=== PATIENT | male | born 1945 | race Caucasian/White ===

== ENCOUNTER 2017-01-05 14:28 | Inpatient (IN) | payer OTHER ==
[2017-01-05 14:46] VITALS: BMI 33.8
--- NOTE | 2017-01-05 14:53 | PDOC ---
History of Present Illness <Jocelyn Welch - Last Filed: 01/05/17 17:15> - History of Present Illness Initial Comments: 01/05/17 14:54 71-year-old male with a past medical history of hyperlipidemia and hypertension Patient's only blood thinner at this time is a baby aspirin daily Patient is complaining of a few months of occasionally feeling itchy all over, but without hives or any other ALLERGIC reaction symptoms He also states that he's had a few months of gradually progressive weakness associated with some increasing dyspnea on exertion, but he denies any chest pain palpitations or pedal edema He states he's had a bit of a cough for a long time, but that has been attributed to his ALLERGIES He does admit that his stool is been intermittently dark for 3-4 months, and his urine has possibly been dark also He states that his last colonoscopy was over 10 years ago He denies any associated abdominal pain or chest pain He went to see an automatic coin machine mechanic yesterday for his seasonal ALLERGIES and his occasional skin itching, and had some blood work done He was called today to come to the emergency department because he was told that his "blood counts were low" He denies any other complaints at this time, and the remainder of the review of systems is negative <Renetta Contreras - Last Filed: 01/05/17 17:24> - General Chief Complaint: Revisit, Lab Variance Stated Complaint: sent by pmd for labs skin color pale Time Seen by Provider: 01/05/17 14:32 Past History <Jocelyn Welch - Last Filed: 01/05/17 17:15> - Past Medical History Disorders: Yes (kidney stones) Hypercholesterolemia: Yes - Psycho/Social/Smoking Cessation Hx Anxiety: No Suicidal Ideation: No Smoking History: Never smoked Have you smoked in the past 12 months: No Information on smoking cessation initiated: No Hx Alcohol Use: No Drug/Substance Use Hx: No Substance Use Type: Alcohol <Renetta Contreras - Last Filed: 01/05/17 17:24> - Past Medical History Allergies/Adverse Reactions: Allergies Allergy/AdvReac Type Severity Reaction Status Date / Time No Known Allergies Allergy Unverified 01/05/17 14:32 Home Medications: Ambulatory Orders Aspirin [Evan Chewable] 81 mg PO DAILY 01/05/17 Cetirizine HCl 10 mg PO DAILY 01/05/17 Guaifenesin Dm [Mucinex Dm -] 2 each PO BID 01/05/17 Montelukast Na [Singulair -] 10 mg PO HS 01/05/17 Pravastatin Sodium [Pravachol (Nf)] 80 mg PO HS 01/05/17 Review of Systems - Review of Systems Able to Perform ROS?: Yes Comments:: 01/05/17 14:56 12 point review of systems is as per history of present illness and otherwise negative <Renetta Contreras - Last Filed: 01/05/17 17:24> *Physical Exam - Vital Signs Last Vital Signs Temp Pulse Resp BP Pulse Ox 99 F 80 16 138/70 100 01/05/17 14:39 01/05/17 14:39 01/05/17 14:39 01/05/17 14:39 01/05/17 15:13 <Jocelyn Welch - Last Filed: 01/05/17 17:15> - Vital Signs Last Vital Signs Temp Pulse Resp BP Pulse Ox 99 F 80 16 138/70 100 01/05/17 14:39 01/05/17 14:39 01/05/17 14:39 01/05/17 14:39 01/05/17 14:39 - Physical Exam Comments: 01/05/17 14:56 Physical exam Last Vital Signs Temp Pulse Resp BP Pulse Ox 99 F 80 16 138/70 100 01/05/17 14:39 01/05/17 14:39 01/05/17 14:39 01/05/17 14:39 01/05/17 14:39 GENERAL: The patient is awake, alert, and answering questions He appears pale HEAD: Normal with no signs of trauma. EYES: Conjunctiva and sclera are pale ENT: Lips and mucous membranes are pale NECK: Normal range of motion, supple LUNGS: Breath sounds equal, clear to auscultation bilaterally. No wheezes, and no crackles. HEART: Regular rate and rhythm, normal S1 and S2 without murmur, rub or gallop. ABDOMEN: Soft, nontender, normoactive bowel sounds. No guarding, no rebound. No masses appreciated. RECTAL: Stool is brown, without obvious black tarry stool, or bright red blood EXTREMITIES: Normal range of motion, no edema. No clubbing or cyanosis. No cords, erythema, or tenderness. NEUROLOGICAL: Cranial nerves II through XII grossly intact. Normal speech, normal gait. Alert and answering questions, grossly nonfocal neurologic exam PSYCH: Normal mood, normal affect. SKIN: Warm, Dry, pale <Renetta Contreras - Last Filed: 01/05/17 17:24> ED Treatment Course - LABORATORY CBC & Chemistry Diagram: 01/05/17 14:35 01/05/17 14:36 - ADDITIONAL ORDERS Additional order review: Laboratory Results 01/05/17 01/05/17 01/05/17 15:15 15:10 14:36 Sodium Potassium Chloride Carbon Dioxide Anion Gap BUN Creatinine Creat Clearance w eGFR Random Glucose Calcium Magnesium Total Bilirubin AST ALT Alkaline Phosphatase Creatine Kinase Troponin I Total Protein Albumin Lipase Urine Color Yellow Urine Appearance Clear Urine pH 5.0 Ur Specific [place] 1.020 Urine Protein Negative Urine Glucose (UA) Negative Urine Ketones Trace Urine Blood Negative Urine Nitrite Negative Urine Bilirubin Negative Urine Urobilinogen 0.2 e.u/dl Ur Leukocyte Esterase Negative Stool Occult Blood Negative Crossmatch See Detail 01/05/17 01/05/17 14:36 14:36 Sodium 136 Potassium 4.2 Chloride 105 Carbon Dioxide 22 Anion Gap 9 BUN 18 Creatinine 0.7 Creat Clearance w eGFR > 60 Random Glucose 124 H Calcium 8.5 Magnesium 2.1 Total Bilirubin 0.6 AST 17 ALT 17 Alkaline Phosphatase 75 Creatine Kinase 80 Troponin I < 0.03 L Total Protein 7.0 Albumin 3.8 Lipase 34 Urine Color Urine Appearance Urine pH Ur Specific [place] Urine Protein Urine Glucose (UA) Urine Ketones Urine Blood Urine Nitrite Urine Bilirubin Urine Urobilinogen Ur Leukocyte Esterase Stool Occult Blood Crossmatch 01/05/17 14:35 RBC 3.95 L MCV 54.1 L MCHC 27.9 L RDW 21.3 H MPV 7.6 <Jocelyn Weclh - Last Filed: 01/05/17 17:15> - LABORATORY CBC & Chemistry Diagram: 01/05/17 14:35 01/05/17 14:36 - RADIOLOGY Radiology Studies Ordered: Category Date Time Status CHEST X-RAY PORTABLE* [RAD] Stat Radiology 01/05/17 14:33 Ordered <Renetta Contreras - Last Filed: 01/05/17 17:24> Medical Decision Making - Medical Decision Making 01/05/17 17:15 First call placed to Dr. Austin at 17:15. Awaiting call back. Case discussed with Dr. Austin at 17:16. 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 for his itchy spells and his cough associated with seasonal ALLERGIES, and was called today, and told to come to the emergency department because his "blood counts were low" 01/05/17 15:03 EKG Normal sinus rhythm 81, left axis deviation -16 First degree AV block Normal QRS duration Normal QT interval Otherwise normal EKG There is no old EKG for comparison at this time 01/05/17 17:00 Laboratory Results - last 24 hr 01/05/17 01/05/17 01/05/17 14:35 14:36 14:36 WBC 9.3 RBC 3.95 L Hgb 6.0 L* Hct 21.4 L MCV 54.1 L MCHC 27.9 L RDW 21.3 H Plt Count 263 MPV 7.6 Sodium 136 Potassium 4.2 Chloride 105 Carbon Dioxide 22 Anion Gap 9 BUN 18 Creatinine 0.7 Creat Clearance w eGFR > 60 Random Glucose 124 H Calcium 8.5 Magnesium 2.1 Total Bilirubin 0.6 AST 17 ALT 17 Alkaline Phosphatase 75 Creatine Kinase 80 Troponin I < 0.03 L Total Protein 7.0 Albumin 3.8 Lipase 34 Urine Color Urine Appearance Urine pH Ur Specific [place] Urine Protein Urine Glucose (UA) Urine Ketones Urine Blood Urine Nitrite Urine Bilirubin Urine Urobilinogen Ur Leukocyte Esterase Stool Occult Blood Crossmatch 01/05/17 01/05/17 01/05/17 14:36 15:10 15:15 WBC RBC Hgb Hct MCV MCHC RDW Plt Count MPV Sodium Potassium Chloride Carbon Dioxide Anion Gap BUN Creatinine Creat Clearance w eGFR Random Glucose Calcium Magnesium Total Bilirubin AST ALT Alkaline Phosphatase Creatine Kinase Troponin I Total Protein Albumin Lipase Urine Color Yellow Urine Appearance Clear Urine pH 5.0 Ur Specific [place] 1.020 Urine Protein Negative Urine Glucose (UA) Negative Urine Ketones Trace Urine Blood Negative Urine Nitrite Negative Urine Bilirubin Negative Urine Urobilinogen 0.2 e.u/dl Ur Leukocyte Esterase Negative Stool Occult Blood Negative Crossmatch See Detail Hemoglobin 6 !!! With extremely microcytic indices Possibly thalassemia trait, with secondary blood loss and iron deficiency anemia on top of that Will check iron, TIBC, ferritin, reticulocyte count, hemoglobin electrophoresis 3 units PRBCs ordered Hospitalist paged 01/05/17 17:[address] [id number] see patient in consultation Case and all results discussed with Dr. Israel-will admit <Renetta Contreras - Last Filed: 01/05/17 17:24> *DC/Admit/Observation/Transfer <Jocelyn Welch - Last Filed: 01/05/17 17:15> - Discharge Dispostion Admit: Yes <Renetta Contreras - Last Filed: 01/05/17 17:24> Diagnosis at time of Disposition: Severe anemia - Discharge Dispostion Condition at time of disposition: Stable
[2017-01-05 15:41] LABS: MCHC 27.9 g/dl (32.0-35.9); MEAN CELL VOLUME 54.1 fl (80-96); MEAN PLT VOLUME 7.6 fl (7.5-11.1); PLATELET COUNT 263 K/MM3 (134-434); RDW 21.3 % (11.9-15.9); WHITE BLOOD COUNT 9.3 K/mm3 (4.0-10.8)
[2017-01-05 15:51] LABS: URINE APPEARANCE Clear; URINE BILIRUBIN Negative (NEGATIVE); URINE BLOOD Negative (NEGATIVE); URINE GLUCOSE (UA) Negative (NEGATIVE); URINE KETONE Trace (NEGATIVE); URINE LEUK ESTERASE Negative (NEGATIVE); URINE NITRITE Negative (NEGATIVE); URINE PROTEIN Negative (NEGATIVE); URINE UROBILINOGEN 0.2 E.U/dl (0.2-1.0)
[2017-01-05 15:52] LABS: URINE COLOR YELLOW
[2017-01-05 16:23] LABS: TROPONIN I (DFP) < 0.03 ng/ml (0.03-0.50)
[2017-01-05 16:32] LABS: ALBUMIN 3.8 g/dl (3.5-5.0); ALK PHOS 75 U/L (32-92); ANION GAP 9 (8-16); BILIRUBIN,TOTAL 0.6 mg/dl (0.2-1.0); CALCIUM 8.5 mg/dl (8.4-10.2); CO2 22 mmol/L (22-28); COCKROFT - GAULT 136.07; CREATININE 0.7 mg/dl (0.6-1.3); GLUCOSE,RANDOM 124 mg/dl (74-106); MAGNESIUM 2.1 mg/dL (1.8-2.4); SGOT/AST 17 U/L (10-42); SGPT/ALT 17 U/L (10-40)
[2017-01-05 16:33] LABS: CPK(DFH) 80 IU/L (38-174)
[2017-01-05 16:50] LABS: MCH 15.1 pg (25.7-33.7)
[2017-01-05] MEDS ORDERED: PANTOPRAZOLE SODIUM 40 MG in SODIUM CHLORIDE 100 ML IVPB ONE (17:00)
[2017-01-05] MEDS ORDERED: PANTOPRAZOLE SODIUM 40 MG VIAL ONE (17:16)
--- NOTE | 2017-01-05 20:17 | HP ---
CHIEF COMPLAINT: Sob, Weakness PCP: HISTORY OF PRESENT ILLNESS: This is a 71 y/o male with a past medical of HTN, HLD, Renal Colic. Who presents to the emergency department with SOB, generalized weakness x several months worse today. Patient reports having dark tarry stools 3-4 months. Patient reports taking Pepto Bismol 2 weeks ago for dyspepsia. Patient reports last colonoscopy > 10 yrs. Patient denies fever, chills, cough, dizziness, CP, AP, N/V/D, constipation, hematuria. ER course was notable for: (1) Hgb 6.0 (2) EKG- NSR [address] or TWI (3) Recent Travel: None PAST MEDICAL HISTORY: See HPI PAST SURGICAL HISTORY: Social History: Smoking: Former 1.5PPD- Quit 30 yrs Alcohol: Occasional Drugs: None Family History: Colorectal Ca Allergies No Known Allergies Allergy (Unverified 01/05/17 14:32) HOME MEDICATIONS: Home Medications Medication Instructions Recorded Aspirin [Evan Chewable] 81 mg PO DAILY 01/05/17 Cetirizine HCl 10 mg PO DAILY 01/05/17 Guaifenesin Dm [Mucinex Dm -] 2 each PO BID 01/05/17 Montelukast Na [Singulair -] 10 mg PO HS 01/05/17 Pravastatin Sodium [Pravachol (Nf)] 80 mg PO HS 01/05/17 REVIEW OF SYSTEMS CONSTITUTIONAL: generalized weakness Absent: fever, chills, diaphoresis, malaise, loss of appetite, weight change HEENT: Absent: rhinorrhea, nasal congestion, throat pain, throat swelling, difficulty swallowing, mouth swelling, ear pain, eye pain, visual changes CARDIOVASCULAR: Absent: chest pain, syncope, palpitations, irregular heart rate, lightheadedness , peripheral edema RESPIRATORY: shortness of breath Absent: cough, dyspnea with exertion, orthopnea, wheezing, stridor, hemoptysis GASTROINTESTINAL: melena Absent: abdominal pain, abdominal distension, nausea, vomiting, diarrhea, constipation, hematochezia GENITOURINARY: Absent: dysuria, frequency, urgency, hesitancy, hematuria, flank pain, genital pain MUSCULOSKELETAL: Absent: myalgia, arthralgia, joint swelling, back pain, neck pain SKIN: Absent: rash, itching, pallor HEMATOLOGIC/IMMUNOLOGIC: Absent: easy bleeding, easy bruising, lymphadenopathy, frequent infections ENDOCRINE: Absent: unexplained weight gain, unexplained weight loss, heat intolerance, cold intolerance NEUROLOGIC: Absent: headache, focal weakness or paresthesias, dizziness, unsteady gait, seizure, mental status changes, bladder or bowel incontinence PSYCHIATRIC: Absent: anxiety, depression, suicidal or homicidal ideation, hallucinations. PHYSICAL EXAMINATION GENERAL:Pallor, awake, alert, and fully oriented, in no acute distress. HEAD: Normal with no signs of trauma. EYES: Pupils equal, round and reactive to light, extraocular movements intact, sclera anicteric, conjunctiva pale. No lid lag. EARS, NOSE, THROAT: Ears normal, nares patent, oropharynx clear without exudates. Moist mucous membranes. NECK: Normal range of motion, supple without lymphadenopathy, JVD, or masses. LUNGS: Breath sounds equal, clear to auscultation bilaterally. No wheezes, and no crackles. No accessory muscle use. HEART: Regular rate and rhythm, normal S1 and S2 without murmur, rub or gallop. ABDOMEN: Soft, nontender, not distended, normoactive bowel sounds, no guarding, no rebound, no masses. No hepatomegaly or splenomegaly. MUSCULOSKELETAL: Normal range of motion at all joints. No bony deformities or tenderness. No CVA tenderness. UPPER EXTREMITIES: 2+ pulses, warm, well-perfused. No cyanosis. No clubbing. No peripheral edema. LOWER EXTREMITIES: 2+ pulses, warm, well-perfused. No calf tenderness. No peripheral edema. NEUROLOGICAL: Cranial nerves II-XII intact. Normal speech. Normal gait. PSYCHIATRIC: Cooperative. Good eye contact. Appropriate mood and affect. SKIN: Warm, dry, normal turgor, no rashes or lesions noted, normal capillary refill. Laboratory Results - last 24 hr 3 01/05/17 01/05/17 01/05/17 14:35 14:36 14:36 WBC 9.3 RBC 3.95 L Hgb 6.0 L* Hct 21.4 L MCV 54.1 L MCHC 27.9 L RDW 21.3 H Plt Count 263 MPV 7.6 Neutrophils % 79.0 Lymphocytes % 13.0 Monocytes % 4.0 Eosinophils % 4.0 Platelet Comment Few giant plts Hypochromic-Microcytic 3+ Anisocytosis 2+ Microcytosis 2+ Retic Count Sodium 136 Potassium 4.2 Chloride 105 Carbon Dioxide 22 Anion Gap 9 BUN 18 Creatinine 0.7 Creat Clearance w eGFR > 60 Random Glucose 124 H Calcium 8.5 Magnesium 2.1 Ferritin Total Bilirubin 0.6 AST 17 ALT 17 Alkaline Phosphatase 75 Creatine Kinase 80 Troponin I < 0.03 L Total Protein 7.0 Albumin 3.8 Lipase 34 Urine Color Urine Appearance Urine pH Ur Specific [place] Urine Protein Urine Glucose (UA) Urine Ketones Urine Blood Urine Nitrite Urine Bilirubin Urine Urobilinogen Ur Leukocyte Esterase Stool Occult Blood Blood Type Antibody Screen Crossmatch 3 01/05/17 01/05/17 01/05/17 14:36 15:10 15:15 WBC RBC Hgb Hct MCV MCHC RDW Plt Count MPV Neutrophils % Lymphocytes % Monocytes % Eosinophils % Platelet Comment Hypochromic-Microcytic Anisocytosis Microcytosis Retic Count Sodium Potassium Chloride Carbon Dioxide Anion Gap BUN Creatinine Creat Clearance w eGFR Random Glucose Calcium Magnesium Ferritin Total Bilirubin AST ALT Alkaline Phosphatase Creatine Kinase Troponin I Total Protein Albumin Lipase Urine Color Yellow Urine Appearance Clear Urine pH 5.0 Ur Specific [place] 1.020 Urine Protein Negative Urine Glucose (UA) Negative Urine Ketones Trace Urine Blood Negative Urine Nitrite Negative Urine Bilirubin Negative Urine Urobilinogen 0.2 e.u/dl Ur Leukocyte Esterase Negative Stool Occult Blood Negative Blood Type O POSITIVE Antibody Screen Negative Crossmatch See Detail 3 01/05/17 01/05/17 01/05/17 16:56 17:14 17:14 WBC RBC Hgb Hct MCV MCHC RDW Plt Count MPV Neutrophils % Lymphocytes % Monocytes % Eosinophils % Platelet Comment Hypochromic-Microcytic Anisocytosis Microcytosis Retic Count 2.15 H Sodium Potassium Chloride Carbon Dioxide Anion Gap BUN Creatinine Creat Clearance w eGFR Random Glucose Calcium Magnesium Ferritin 2.041 L Total Bilirubin AST ALT Alkaline Phosphatase Creatine Kinase Troponin I Total Protein Albumin Lipase Urine Color Urine Appearance Urine pH Ur Specific [place] Urine Protein Urine Glucose (UA) Urine Ketones Urine Blood Urine Nitrite Urine Bilirubin Urine Urobilinogen Ur Leukocyte Esterase Stool Occult Blood Blood Type O POSITIVE Antibody Screen Crossmatch 3 01/06/17 04:00 WBC 9.7 RBC 4.03 Hgb 6.8 L* Hct 23.6 L MCV 58.4 L MCHC 28.8 L RDW 26.1 H Plt Count 246 MPV 9.2 Neutrophils % Lymphocytes % Monocytes % Eosinophils % Platelet Comment Hypochromic-Microcytic Anisocytosis Microcytosis Retic Count Sodium Potassium Chloride Carbon Dioxide Anion Gap BUN Creatinine Creat Clearance w eGFR Random Glucose Calcium Magnesium Ferritin Total Bilirubin AST ALT Alkaline Phosphatase Creatine Kinase Troponin I Total Protein Albumin Lipase Urine Color Urine Appearance Urine pH Ur Specific [place] Urine Protein Urine Glucose (UA) Urine Ketones Urine Blood Urine Nitrite Urine Bilirubin Urine Urobilinogen Ur Leukocyte Esterase Stool Occult Blood Blood Type Antibody Screen Crossmatch ASSESSMENT/PLAN: This is a 71 y/o male with a PMHx of: HTN, HLD, Renal Colic. Who presents to the emergency department with SOB and weakness. Admitted for Symptomatic Anemia for further evaluation for their emergent condition. Plan: 1. Heme: Symptomatic Anemia - Likely secondary to Thalsemia vs IDC - PRBCs x3 ordered, to give 2 tonight - Repeat CBC in am - Transfuse if Hb < 7.0 - Add on FE & TIBC to prior labs - Monitor vitals 2. Card: HTN/HLD - Monitor BP - Continue home meds 3. FEN - Tolerates PO fluids - Replete lytes prn - Low Na Diet 4. DVT/PPI Prophylaxis - OOB - SCDs - Hold ACs 2/ Anemia Code Status: Full Code Dispo: Inpatient Care Problem List - Problem (1) Symptomatic anemia Code(s): D64.9 - ANEMIA, UNSPECIFIED (2) HLD (hyperlipidemia) Code(s): E78.5 - HYPERLIPIDEMIA, UNSPECIFIED (3) HTN (hypertension) Code(s): I10 - ESSENTIAL (PRIMARY) HYPERTENSION (4) Renal colic Code(s): N23 - UNSPECIFIED RENAL COLIC (5) DVT prophylaxis Code(s): HHA9803 - Visit type - Emergency Visit Emergency Visit: Yes ED Registration Date: 01/05/17 Care time: The patient presented to the Emergency Department on the above date and was hospitalized for further evaluation of their emergent condition. - New Patient This patient is new to me today: Yes Date on this admission: 01/05/17 - Critical Care Critical Care patient: No
[2017-01-05 23:26] LABS: HYPOCHROMIA 3+
[2017-01-05 23:27] LABS: ANISOCYTOSIS 2+; MICROCYTOSIS 2+
[2017-01-06 04:24] LABS: MCHC 28.8 g/dl (32.0-35.9); MEAN CELL VOLUME 58.4 fl (80-96); MEAN PLT VOLUME 9.2 fl (7.5-11.1); PLATELET COUNT 246 K/MM3 (134-434); RDW 26.1 % (11.9-15.9); WHITE BLOOD COUNT 9.7 K/mm3 (4.0-10.0)
[2017-01-06 04:26] LABS: MCH 16.8 pg (25.7-33.7)
--- NOTE | 2017-01-06 08:21 | PN ---
[id number]: patient is a 71 y/o male with a past medical of HTN, HLD, Renal Colic. patient was admitted from the emergency department for severe microcytic anemia. Vital Signs Period Temp Pulse Resp BP Sys/Nunn Pulse Ox Last 24 Hr 97.6 F-99.4 F 72-81 18-20 117-140/51-68 95-98 GENERAL: The patient is awake, alert, and fully oriented, in no acute distress. HEAD: Normal with no signs of trauma. EYES: PERRL, extraocular movements intact, pale sclera and conjunctiva. No ptosis. ENT: Ears normal, nares patent, oropharynx clear without exudates, moist mucous membranes. NECK: Trachea midline, full range of motion, supple. LUNGS: Breath sounds equal, clear to auscultation bilaterally, no wheezes, no crackles, no accessory muscle use. HEART: Regular rate and rhythm, S1, S2 without murmur, rub or gallop. ABDOMEN: Soft, nontender, nondistended, normoactive bowel sounds, no guarding, no rebound, no hepatosplenomegaly, no masses. EXTREMITIES: 2+ pulses, warm, well-perfused, no edema. NEUROLOGICAL: Cranial nerves II through XII grossly intact. Normal speech, gait not observed. PSYCH: Normal mood, normal affect. SKIN: pale appearing, Warm, dry, normal turgor, no rashes or lesions noted Laboratory Results - last 24 hr 01/06/17 04:00 WBC 9.7 RBC 4.03 Hgb 6.8 L* Hct 23.6 L MCV 58.4 L MCHC 28.8 L RDW 26.1 H Plt Count 246 MPV 9.2 CBC WBC 8.9 K/mm3 (4.0-10.8) 01/06/17 07:37 RBC 4.51 M/mm3 (4.00-5.60) 01/06/17 07:37 Hgb 7.5 GM/dl (11.7-16.9) L D 01/06/17 07:37 Hct 26.8 % (35.4-49) L D 01/06/17 07:37 MCV 59.4 fl (80-96) L 01/06/17 07:37 MCHC 28.0 g/dl (32.0-35.9) L 01/06/17 07:37 RDW 25.6 % (11.9-15.9) H 01/06/17 07:37 Plt Count 281 K/MM3 (134-434) 01/06/17 07:37 MPV 8.4 fl (7.5-11.1) D 01/06/17 07:37 Neutrophils % 79.0 % (42.8-82.8) 01/05/17 14:35 Lymphocytes % 13.0 % (8-40) 01/05/17 14:35 Monocytes % 4.0 % (3.8-10.2) 01/05/17 14:35 Eosinophils % 4.0 % (0-4.5) 01/05/17 14:35 Differential Comment 01/05/17 14:35 Platelet Comment Few giant plts 01/05/17 14:35 Hypochromic-Microcytic 3+ 01/05/17 14:35 Anisocytosis 2+ 01/05/17 14:35 Microcytosis 2+ 01/05/17 14:35 Retic Count 2.15 % (0.5-1.5) H 01/05/17 17:14 CMP Sodium 136 mmol/L (136-145) 01/05/17 14:36 Potassium 4.2 mmol/L (3.5-5.1) 01/05/17 14:36 Chloride 105 mmol/L (98-107) 01/05/17 14:36 Carbon Dioxide 22 mmol/L (22-28) 01/05/17 14:36 Anion Gap 9 (8-16) 01/05/17 14:36 BUN 18 mg/dl (7-18) 01/05/17 14:36 Creatinine 0.7 mg/dl (0.6-1.3) 01/05/17 14:36 Creat Clearance w eGFR > 60 (>60) 01/05/17 14:36 Random Glucose 124 mg/dl (74-106) H 01/05/17 14:36 Calcium 8.5 mg/dl (8.4-10.2) 01/05/17 14:36 Magnesium 2.1 mg/dL (1.8-2.4) 01/05/17 14:36 Ferritin 2.041 ng/ml (16.4-293.9) L 01/05/17 17:14 Total Bilirubin 0.6 mg/dl (0.2-1.0) 01/05/17 14:36 AST 17 U/L (10-42) 01/05/17 14:36 ALT 17 U/L (10-40) 01/05/17 14:36 Alkaline Phosphatase 75 U/L (32-92) 01/05/17 14:36 Creatine Kinase 80 IU/L (38-174) 01/05/17 14:36 Troponin I < 0.03 ng/ml (0.03-0.50) L 01/05/17 14:36 Total Protein 7.0 g/dl (6.4-8.3) 01/05/17 14:36 Albumin 3.8 g/dl (3.5-5.0) 01/05/17 14:36 Lipase 34 U/L (22-51) 01/05/17 14:36 ASSESSMENT/PLAN: 1) Heme: microcytic anemia - likely secondary to GI source in addition to thalasemia - pt is s/p 2 units of prbc, repeat hgb 7.5, pt is symptomatic, 1 unit of prbc ordered, repeat cbc ordered for 1800 - case discussed with Dr Austin, pt is pending EGD at 1400 - pending FE & TIBC 2. Card: HTN/HLD - no home meds, b/p at goal close monitoring F/E/N - npo for egd -replete lytes prn DVT/PPI Prophylaxis - OOB - SCDs - Hold ACs due to anemia emia Code Status: Full Code Dispo: Inpatient Care Visit type - Emergency Visit Emergency Visit: Yes ED Registration Date: 01/05/17 Care time: The patient presented to the Emergency Department on the above date and was hospitalized for further evaluation of their emergent condition. - New Patient This patient is new to me today: Yes Date on this admission: 01/06/17 - Critical Care Critical Care patient: No - Discharge Referral Referred to [facility] No
[2017-01-06 10:13] LABS: MEAN CELL VOLUME 59.4 fl (80-96); MEAN PLT VOLUME 8.4 fl (7.5-11.1); PLATELET COUNT 281 K/MM3 (134-434); RDW 25.6 % (11.9-15.9); WHITE BLOOD COUNT 8.9 K/mm3 (4.0-10.8)
[2017-01-06 11:29] LABS: MCH 16.7 pg (25.7-33.7)
[2017-01-06] MEDS ORDERED: PANTOPRAZOLE SODIUM 100 ML IVPB SCH (12:00)
--- NOTE | 2017-01-06 12:32 | EKG ---
Test Reason : Blood Pressure : / mmHG Vent. Rate : 081 BPM Atrial Rate : 081 BPM P-R Int : 200 ms QRS Dur : 100 ms QT Int : 388 ms P-R-T Axes : 047 -16 019 degrees QTc Int : 450 ms SINUS RHYTHM WITH 1ST DEGREE A-V BLOCK NO PREVIOUS ECGS AVAILABLE Confirmed by ALETA CLEARY MD ([id number] on 01/06/2017 12:31:58 PM Referred By: CHARO GOMEZ Confirmed By:ALETA CLEARY MD
[2017-01-06] MEDS ORDERED: PATIENT'S OWN MEDICATION (NON-FORMULARY) (Cetirizine Hcl [Cetirizine Hcl] 10 MG) PO SCH (12:45)
[2017-01-06] MEDS ORDERED: PT OWN MED DRAWER 7, Y5N ONE (13:35)
[2017-01-06] MEDS: LORATADINE 10 MG TABLET PO SCH (13:42)
[2017-01-06] MEDS: FLUTICASONE PROP 0.05% 16 GM NASAL SPRAY NS SCH (13:43)
[2017-01-06] MEDS ORDERED: PROPOFOL 20 ML ONE (14:37)
--- NOTE | 2017-01-06 14:40 | PN ---
Progress Note (short form) - Note Progress Note: Patient seen and consult dictated. Patient is a 71 yo male admitted with fatigue and severe microcytic/iron def anemia. No specific GInsymptoms but has been on aspirin chronically and has +FH gastric cancer (2 brothers). Being transfused at present and will arrange for EGD this pm. On PPI and off ASA. If EGD negative,, will proceed with colonoscopy (Monday am, with prep over weekend). Discussed with patient and .
--- NOTE | 2017-01-06 15:23 | PN ---
Progress Note (short form) - Note Progress Note: Upper endoscopy performed with full report in chart; small prepyloric erosion, other horan normal study. No bleeding seen. Biopsies taken to r/o H pylori and celiac disease. Would switch to PO PPI daily and transfuse PRBCs per Medicine. For colonoscopy on Monday to r/o LGI tract lesion/bleeding source. Patient/ family informed.
[2017-01-06 18:37] LABS: MCH 18.1 pg (25.7-33.7); MCHC 29.5 g/dl (32.0-35.9); MEAN CELL VOLUME 61.4 fl (80-96); RDW 28.3 % (11.9-15.9); WHITE BLOOD COUNT 8.9 K/mm3 (4.0-10.8)
[2017-01-06 18:38] LABS: MEAN PLT VOLUME 8.3 fl (7.5-11.1); PLATELET COUNT 274 K/MM3 (134-434)
[2017-01-06 18:43] LABS: ANION GAP 9 (8-16); CALCIUM 8.5 mg/dl (8.4-10.2); CO2 26 mmol/L (22-28); CREATININE 0.8 mg/dl (0.6-1.3); GLUCOSE,RANDOM 166 mg/dl (74-106)
[2017-01-06] MEDS: ATORVASTATIN CA 20 MG TABLET (FP) PO SCH (21:17)
[2017-01-06] MEDS: MONTELUKAST NA 10 MG TABLET PO SCH (21:17)
[2017-01-06] MEDS ORDERED: PATIENT'S OWN MEDICATION (NON-FORMULARY) (Pravastatin Sodium 80 MG) PO SCH (22:00)
[2017-01-07 08:00] LABS: ALBUMIN 4.1 g/dl (3.5-5.0); ALK PHOS 85 U/L (32-92); ANION GAP 7 (8-16); BILIRUBIN,TOTAL 0.8 mg/dl (0.2-1.0); CALCIUM 9.3 mg/dl (8.4-10.2); CO2 26 mmol/L (22-28); COCKROFT - GAULT 119.06; CREATININE 0.8 mg/dl (0.6-1.3); GLUCOSE,RANDOM 112 mg/dl (74-106); SGOT/AST 16 U/L (10-42); SGPT/ALT 16 U/L (10-40); TOT PROT 7.6 g/dl (6.4-8.3)
[2017-01-07] MEDS: FLUTICASONE PROP 0.05% 16 GM NASAL SPRAY NS SCH (10:00)
[2017-01-07] MEDS: PANTOPRAZOLE 40 MG TABLET (FP) PO SCH (10:00)
[2017-01-07] MEDS: LORATADINE 10 MG TABLET PO SCH (10:00)
[2017-01-07 10:10] LABS: WHITE BLOOD COUNT 9.6 K/mm3 (4.0-10.8)
[2017-01-07 10:24] LABS: BASOPHIL 1.5 % (0-2.0); MCHC 30.2 g/dl (32.0-35.9); MEAN CELL VOLUME 60.9 fl (80-96); MEAN PLT VOLUME 8.3 fl (7.5-11.1); NEUTROPHILS 67.6 % (42.8-82.8); PLATELET COUNT 284 K/MM3 (134-434); RDW 27.8 % (11.9-15.9)
[2017-01-07] MEDS ORDERED: PT OWN MED DRAWER 7, Y5N ONE (10:24)
[2017-01-07 10:40] LABS: MCH 18.4 pg (25.7-33.7)
--- NOTE | 2017-01-07 13:00 | CONS ---
DATE OF CONSULTATION: 01/06/2017 REASON FOR CONSULTATION: I am asked to evaluate this 71-year-old gentleman admitted via the emergency room with weakness and severe microcytic anemia. HISTORY OF PRESENT ILLNESS: The patient is a 71-year-old gentleman with a history of hypertension, hyperlipidemia, and chronic aspirin use. He has had a several-month history of progressive weakness and some dyspnea on exertion. He denied any chest pain. He was seen in the emergency room and noted to be pale in appearance with a benign abdominal exam. Rectal exam with brown stool and no obvious bright-red blood or tarry stool. Hemoglobin was 6, hematocrit 21.4, with a white count of 9.3. His MCV was 54.1. Platelet count was with a few giant platelets. The patient states he had a colonoscopy over 10 years ago but has never had an upper endoscopy. He has been on aspirin chronically and has a family history notable for his 2 brothers dying of stomach cancer. The patient denies any abdominal pain, nausea, vomiting, early satiety. PHYSICAL EXAMINATION: General: He is currently seen resting in bed, having received 2 units of blood. He still appears slightly pale. No icterus. Lungs: Clear. Cardiac: Regular rate and rhythm. Abdomen: Soft. Normoactive bowel sounds. No tenderness. There is a scar from prior appendectomy. LABORATORY TESTS: Include normal electrolytes, a ferritin level of 2 (low), with other iron studies pending. Liver chemistry is unremarkable. ASSESSMENT: Patient with severe microcytic anemia, likely iron deficiency due to chronic blood loss. Has been on aspirin chronically and has family history notable for 2 brothers having had stomach cancer. RECOMMENDATIONS: Agree with packed red blood cell transfusions, avoiding aspirin and PPI therapy. Will arrange for upper endoscopy later today. If the study is unremarkable, will proceed with colonoscopy after prep. Thank you. Will follow. ARTIS PARSON M.D. AMEE/[id number]
--- NOTE | 2017-01-07 13:30 | PN ---
Physical Exam: SUBJECTIVE: Patient seen and examined. Denies abdominal pain, hematochezia. Feeling stronger. OBJECTIVE: Hospital day #3 for this 71 year old male admitted with symptomatic anemia. Vital Signs Period Temp Pulse Resp BP Sys/Nunn Pulse Ox Last 24 Hr 98.4 F-98.8 F 70-77 18-19 135-150/70-73 97-97 GENERAL: The patient is awake, alert, and fully oriented, in no acute distress. HEAD: Normal with no signs of trauma. EYES: PERRL, extraocular movements intact, sclera anicteric, conjunctivae pale. No ptosis. ENT: Ears normal, nares patent, oropharynx clear without exudates, moist mucous membranes. NECK: Trachea midline, full range of motion, supple. LUNGS: Breath sounds equal, clear to auscultation bilaterally, no wheezes, no crackles, no accessory muscle use. HEART: Regular rate and rhythm, S1, S2 without murmur, rub or gallop. ABDOMEN: Soft, nontender, nondistended, normoactive bowel sounds, no guarding, no rebound, no hepatosplenomegaly, no masses. EXTREMITIES: 2+ pulses, warm, well-perfused, no edema. NEUROLOGICAL: Cranial nerves II through XII grossly intact. Normal speech, gait not observed. PSYCH: Normal mood, normal affect. SKIN: Warm, dry, normal turgor, no rashes or lesions noted. Laboratory Results - last 24 hr 01/06/17 01/06/17 01/07/17 18:05 18:05 07:30 WBC 8.9 9.6 RBC 4.64 4.99 Hgb 8.4 L D 9.2 L Hct 28.5 L 30.4 L MCV 61.4 L 60.9 L MCHC 29.5 L 30.2 L RDW 28.3 H 27.8 H Plt Count 274 284 MPV 8.3 8.3 Neutrophils % Y 67.6 Lymphocytes % Y 18.6 D Monocytes % 7.3 D Eosinophils % 5.0 H Basophils % 1.5 Sodium 139 Potassium 4.3 Chloride 104 Carbon Dioxide 26 Anion Gap 9 BUN 16 Creatinine 0.8 Creat Clearance w eGFR Random Glucose 166 H D Calcium 8.5 Total Bilirubin AST ALT Alkaline Phosphatase Total Protein Albumin 01/07/17 07:30 WBC RBC Hgb Hct MCV MCHC RDW Plt Count MPV Neutrophils % Lymphocytes % Monocytes % Eosinophils % Basophils % Sodium 139 Potassium 4.9 Chloride 106 Carbon Dioxide 26 Anion Gap 7 L BUN 16 Creatinine 0.8 Creat Clearance w eGFR > 60 Random Glucose 112 H D Calcium 9.3 Total Bilirubin 0.8 D AST 16 ALT 16 Alkaline Phosphatase 85 Total Protein 7.6 Albumin 4.1 Active Medications Generic Name Dose Route Start Last Admin Trade Name Freq PRN Reason Stop Dose Admin Atorvastatin Calcium 20 mg 01/06/17 22:00 01/06/17 21:17 Lipitor - PO 20 mg HS MIMI Administration Fluticasone Propionate 2 spray 01/06/17 13:00 01/07/17 10:00 Flonase - NS 2 spray DAILY MIMI Administration Loratadine 10 mg 01/06/17 13:00 01/07/17 10:00 Claritin - PO 10 mg DAILY MIMI Administration Montelukast Sodium 10 mg 01/06/17 22:00 01/06/17 21:17 Singulair - PO 10 mg HS MIMI Administration Pantoprazole Sodium 40 mg 01/07/17 10:00 01/07/17 10:00 Protonix - PO 40 mg DAILY MIMI Administration Polyethylene Glycol/Electrolytes 4,000 ml 01/08/17 13:00 Golytely Solution - PO 01/08/17 13:01 ONCE ONE ASSESSMENT/PLAN: 71 year old male with a history of HTN, HLD, and nephrolithiasis admitted with symptomatic anemia requiring transfusion. 1. HEME: Symptomatic Anemia -Very microcytic, some question of thalassemia trait -S/p 3 units PRBCs with appropriate increase in hgb -Very low ferritin; iron, TIBC, and iron saturation pending -Follow up hemoglobin electrophoresis -S/p endoscopy: no active bleeding noted -For colonoscopy Monday; prep tomorrow -Heme referral on discharge 2. Card: HTN/HLD -BPs at goal -No meds 3. F/E/N -Low sodium diet -PO intake adequate 4. DVT/PPI Prophylaxis -SCDs -No chemical ppx secondary to severe anemia Code Status: Full Code Dispo: Requires inpatient care. Visit type - Emergency Visit Emergency Visit: Yes ED Registration Date: 01/05/17 Care time: The patient presented to the Emergency Department on the above date and was hospitalized for further evaluation of their emergent condition. - New Patient This patient is new to me today: Yes Date on this admission: 01/07/17 - Critical Care Critical Care patient: No
[2017-01-07 15:01] LABS: HYPOCHROMIA 2+
[2017-01-07 15:02] LABS: ANISOCYTOSIS 3+; MICROCYTOSIS 2+
[2017-01-07] MEDS: ATORVASTATIN CA 20 MG TABLET (FP) PO SCH (21:23)
[2017-01-07] MEDS: MONTELUKAST NA 10 MG TABLET PO SCH (21:23)
[2017-01-08 08:08] LABS: ANION GAP 9 (8-16); CALCIUM 8.8 mg/dl (8.4-10.2); CO2 23 mmol/L (22-28); CREATININE 0.8 mg/dl (0.6-1.3); GLUCOSE,RANDOM 97 mg/dl (74-106)
[2017-01-08 09:15] LABS: BASOPHIL 0.9 % (0-2.0); EOSINOPHIL 5.6 % (0-4.5); MCHC 29.1 g/dl (32.0-35.9); NEUTROPHILS 63.7 % (42.8-82.8); PLATELET COUNT 232 K/MM3 (134-434); RDW 29.7 % (11.9-15.9); WHITE BLOOD COUNT 8.8 K/mm3 (4.0-10.8)
[2017-01-08 09:17] LABS: MCH 17.7 pg (25.7-33.7)
[2017-01-08] MEDS: PANTOPRAZOLE 40 MG TABLET (FP) PO SCH (09:31)
[2017-01-08] MEDS: FLUTICASONE PROP 0.05% 16 GM NASAL SPRAY NS SCH (09:31)
[2017-01-08] MEDS: LORATADINE 10 MG TABLET PO SCH (09:31)
[2017-01-08] MEDS ORDERED: PT OWN MED DRAWER 7, Y5N ONE ×2 (09:57→10:56)
--- NOTE | 2017-01-08 10:35 | PN ---
Physical Exam: SUBJECTIVE: Patient seen and examined. Offers no complaints. No weakness, chest pain, or SOB. OBJECTIVE: Hospital day #4 for this 71 year old male admitted with symptomatic anemia. Vital Signs Period Temp Pulse Resp BP Sys/Nunn Pulse Ox Last 24 Hr 97.7 F-98.6 F 57-70 17-18 122-135/55-65 95-99 GENERAL: The patient is awake, alert, and fully oriented, in no acute distress. HEAD: Normal with no signs of trauma. EYES: PERRL, extraocular movements intact, sclera anicteric, conjunctiva clear. No ptosis. ENT: Ears normal, nares patent, oropharynx clear without exudates, moist mucous membranes. Conjunctivae pale. NECK: Trachea midline, full range of motion, supple. LUNGS: Breath sounds equal, clear to auscultation bilaterally, no wheezes, no crackles, no accessory muscle use. HEART: Regular rate and rhythm, S1, S2 without murmur, rub or gallop. ABDOMEN: Soft, nontender, nondistended, normoactive bowel sounds, no guarding, no rebound, no hepatosplenomegaly, no masses. EXTREMITIES: 2+ pulses, warm, well-perfused, no edema. NEUROLOGICAL: Cranial nerves II through XII grossly intact. Normal speech, gait not observed. PSYCH: Normal mood, normal affect. SKIN: Warm, dry, normal turgor, no rashes or lesions noted Laboratory Results - last 24 hr 01/07/17 01/08/17 01/08/17 07:30 06:00 06:00 WBC 9.6 8.8 RBC 4.99 4.93 Hgb 9.2 L 8.7 L Hct 30.4 L 30.1 L MCV 60.9 L 61.0 L MCHC 30.2 L 29.1 L RDW 27.8 H 29.7 H Plt Count 284 232 MPV 8.3 8.0 Neutrophils % 67.6 63.7 Lymphocytes % 18.6 D 20.3 Monocytes % 7.3 D 9.5 Eosinophils % 5.0 H 5.6 H Basophils % 1.5 0.9 Hypochromic-Microcytic 2+ Anisocytosis 3+ Microcytosis 2+ Sodium 138 Potassium 4.4 Chloride 106 Carbon Dioxide 23 Anion Gap 9 BUN 16 Creatinine 0.8 Random Glucose 97 Calcium 8.8 Active Medications Generic Name Dose Route Start Last Admin Trade Name Asherq PRN Reason Stop Dose Admin Atorvastatin Calcium 20 mg 01/06/17 22:00 01/07/17 21:23 Lipitor - PO 20 mg HS MIMI Administration Fluticasone Propionate 2 spray 01/06/17 13:00 01/08/17 09:31 Flonase - NS 2 spray DAILY MIMI Administration Loratadine 10 mg 01/06/17 13:00 01/08/17 09:31 Claritin - PO 10 mg DAILY MIMI Administration Montelukast Sodium 10 mg 01/06/17 22:00 01/07/17 21:23 Singulair - PO 10 mg HS MIMI Administration Pantoprazole Sodium 40 mg 01/07/17 10:00 01/08/17 09:31 Protonix - PO 40 mg DAILY MIMI Administration Polyethylene Glycol/Electrolytes 4,000 ml 01/08/17 13:00 Golytely Solution - PO 01/08/17 13:01 ONCE ONE ASSESSMENT/PLAN:71 year old male with a history of HTN, HLD, and nephrolithiasis admitted with symptomatic anemia requiring transfusion. 1. HEME: Symptomatic Anemia -Very microcytic, some question of thalassemia trait -S/p 3 units PRBCs with appropriate increase in hgb -Very low ferritin; iron, TIBC, and iron saturation pending -Follow up hemoglobin electrophoresis -S/p endoscopy: no active bleeding noted -For colonoscopy Monday; prepping today -Heme referral on discharge 2. Card: HTN/HLD -BPs at goal -No meds 3. F/E/N -Low sodium diet -PO intake adequate 4. DVT/PPI Prophylaxis -SCDs -No chemical ppx secondary to severe anemia Code Status: Full Code Dispo: Requires inpatient care. Visit type - Emergency Visit Emergency Visit: Yes ED Registration Date: 01/05/17 Care time: The patient presented to the Emergency Department on the above date and was hospitalized for further evaluation of their emergent condition. - New Patient This patient is new to me today: Yes Date on this admission: 01/22/17 - Critical Care Critical Care patient: No - Discharge Referral Referred to [facility] Med P.C.: No
[2017-01-08] MEDS ORDERED: PEG 3350/NA SULF BICARB CL/KCL 4000 ML SOLN.RECON PO ONE (13:00)
[2017-01-08] MEDS: ATORVASTATIN CA 20 MG TABLET (FP) PO SCH (21:15)
[2017-01-08] MEDS: MONTELUKAST NA 10 MG TABLET PO SCH (21:15)
[2017-01-09] MEDS ORDERED: PROPOFOL 20 ML ONE ×2 (07:08)
[2017-01-09 08:50] LABS: COCKROFT - GAULT 119.06; CREATININE 0.8 mg/dl (0.6-1.3)
[2017-01-09 10:30] LABS: MEAN CELL VOLUME 61.8 fl (80-96)
--- NOTE | 2017-01-09 10:32 | PN ---
Progress Note (short form) - Note Progress Note: Colonoscopy performed to cecum with full report in chart - normal study without any bleeding seen. Currently stable and would advance diet. If stable can discharge home today. Would continue on PPI daily and will followup in office. If signs of further bleeding, will arrange for outpatient small bowel capsule study. Avoid ASA/NSAIDs.
[2017-01-09] MEDS ORDERED: ONDANSETRON 4 MG/2 ML VIAL ONE (10:33)
[2017-01-09 10:48] VITALS: BP 147/77; PULSE 74; TEMP 97.8
[2017-01-09] MEDS: PANTOPRAZOLE 40 MG TABLET (FP) PO SCH (10:57)
[2017-01-09] MEDS: LORATADINE 10 MG TABLET PO SCH (10:57)
[2017-01-09] MEDS: FLUTICASONE PROP 0.05% 16 GM NASAL SPRAY NS SCH (10:57)
--- NOTE | 2017-01-09 10:58 | DS ---
[id number] shortness of breath, tolerating diet. OBJECTIVE: patient is a 71 y/o male with a past medical of HTN, HLD, Renal Colic. Who presents to the emergency department with SOB, generalized weakness x several months worse today. Patient reports having dark tarry stools 3-4 months. Patient reports taking Pepto Bismol 2 weeks ago for dyspepsia. Patient reports last colonoscopy > 10 yrs. Patient denies fever, chills, cough, dizziness, CP, AP, N/V/D, constipation, hematuria. ER course was notable for: (1) Hgb 6.0 (2) EKG- NSR [address] or TWI Vital Signs Period Temp Pulse Resp BP Sys/Nunn Pulse Ox Last 24 Hr 97.4 F-98.1 F 63-77 -18 131-147/62-77 97-98 PHYSICAL EXAM GENERAL: The patient is awake, alert, and fully oriented, in no acute distress. HEAD: Normal with no signs of trauma. EYES: PERRL, extraocular movements intact, sclera anicteric, pale conjunctiva ENT: Ears normal, nares patent, oropharynx clear without exudates, moist mucous membranes. NECK: Trachea midline, full range of motion, supple. LUNGS: Breath sounds equal, clear to auscultation bilaterally, no wheezes, no crackles, no accessory muscle use. HEART: Regular rate and rhythm, S1, S2 without murmur, rub or gallop. ABDOMEN: Soft, nontender, nondistended, normoactive bowel sounds, no guarding, no rebound, no hepatosplenomegaly, no masses. EXTREMITIES: 2+ pulses, warm, well-perfused, no edema. NEUROLOGICAL: Cranial nerves II through XII grossly intact. Normal speech, gait not observed. PSYCH: Normal mood, normal affect. SKIN: Warm, dry, normal turgor, no rashes or lesions noted. LABS Laboratory Results - last 24 hr 01/09/17 07:29 Sodium 140 Potassium 4.4 Chloride 107 Carbon Dioxide 24 Anion Gap 9 BUN 14 Creatinine 0.8 Random Glucose 99 Calcium 9.0 CBC WBC 7.7 K/mm3 (4.0-10.8) 01/09/17 07:29 RBC 5.00 M/mm3 (4.00-5.60) 01/09/17 07:29 Hgb 9.0 GM/dl (11.7-16.9) L 01/09/17 07:29 Hct 30.9 % (35.4-49) L 01/09/17 07:29 MCV 61.8 fl (80-96) L 01/09/17 07:29 MCHC 29.1 g/dl (32.0-35.9) L 01/09/17 07:29 RDW 29.9 % (11.9-15.9) H 01/09/17 07:29 Plt Count 275 K/MM3 (134-434) 01/09/17 07:29 MPV 8.7 fl (7.5-11.1) 01/09/17 07:29 Neutrophils % 67.2 % (42.8-82.8) 01/09/17 07:29 Lymphocytes % 17.5 % (8-40) 01/09/17 07: Monocytes % 8.1 % (3.8-10.2) 01/09/17 07: Eosinophils % 6.5 % (0-4.5) H 01/09/17 07:29 Basophils % 0.7 % (0-2.0) 01/09/17 07:29 Differential Comment 01/05/17 14:35 Platelet Comment Few giant plts 01/05/17 14:35 Hypochromic-Microcytic 2+ 01/07/17 07:30 Anisocytosis 3+ 01/07/17 07:30 Microcytosis 2+ 01/07/17 07:30 Retic Count 2.15 % (0.5-1.5) H 01/05/17 17:14 HOSPITAL COURSE: patient was admitted to the hospital for symptomatic microcytic anemia. patient received 3 units of PRBC with appropriate increase in hgb. Dr Austin, GI , was consulted and followed throughout hospitalization. Patient underwent a EGD on 01/06/17, small prepyloric erosion was noted and biopsies was sent for hyplori. patient was monitored for 48 hours and hgb remained stable, no active bleeding was noted. patient underwent a colonscopy on 01/09/17, no bleeding or acute pathology was noted. Questionable thalasemia trait is noted. Hemoglobin electrophorosis is pending. Ferritn was noted to be low, iron, tibc, and iron sat are still pending. Patient has a past medical history of hypertension, he does not take any home medications. Blood pressure remained at goal throughout hospitalization. PLAN - follow up with hematology, Dr Sharma within 1 week - follow up with GI within 3 weeks - return precautions reviewed, chest pain, shortness of breath, or dizziness Date of Admission:01/05/17 Date of Discharge: 01/09/17 Minutes to complete discharge: 45 Discharge Summary Reason For Visit: SEVERE ANEMIA Current Active Problems DVT prophylaxis (Acute) HLD (hyperlipidemia) (Acute) HTN (hypertension) (Acute) Renal colic (Acute) Severe anemia (Acute) Symptomatic anemia (Acute) Condition: Stable - Instructions Diet, Activity, Other Instructions: resume regular diet continue protonix daily continue to hold ASA please avoid taking ibuprofen or naproxyn please follow up with the underground repairer within 1 week please follow up with GI, Dr Austin with 3 weeks. Referrals: Krzysztof Austin MD [Staff Physician] - Kalyan Sharma MD [Staff Physician] - Jerel Martinez MD [Staff Physician] - Disposition: HOME - Home Medications Comprehensive Discharge Medication List: Ambulatory Orders Aspirin [Evan Chewable] 81 mg PO DAILY 01/05/17 Cetirizine HCl 10 mg PO DAILY 01/05/17 Guaifenesin Dm [Mucinex Dm -] 2 each PO BID 01/05/17 Montelukast Na [Singulair -] 10 mg PO HS 01/05/17 Pravastatin Sodium [Pravachol (Nf)] 80 mg PO HS 01/05/17 This patient is new to me today: Yes Date on this admission: 01/10/17 Emergency Visit: No Critical Care patient: No - Discharge Referral Referred to [facility] Med P.C.: No
[2017-01-09 11:23] LABS: BASOPHIL 0.7 % (0-2.0); EOSINOPHIL 6.5 % (0-4.5); MCHC 29.1 g/dl (32.0-35.9); MEAN PLT VOLUME 8.7 fl (7.5-11.1); NEUTROPHILS 67.2 % (42.8-82.8); PLATELET COUNT 275 K/MM3 (134-434); RDW 29.9 % (11.9-15.9); WHITE BLOOD COUNT 7.7 K/mm3 (4.0-10.8)
--- NOTE | 2017-01-09 13:49 | PATH ---
Surgical Pathology Report Patient Name: TYRON CADENA Med. Rec. #: [id number] /Age/Gender: 1945 (Age: 71) / M Account: [id number] Location: [facility] Taken: 01/06/2017 Received: 01/06/2017 Reported: 01/09/2017 Physicians: Lara Blancas M.D. Specimen(s) Received A: BX DUODENUM B: BX ANTRUM Clinical History Severe anemia Final Diagnosis A. DUODENUM, BIOPSY: DUODENAL MUCOSA WITH MILD CHRONIC INFLAMMATION. NO HISTOLOGIC EVIDENCE OF GLUTEN SENSITIVE ENTEROPATHY (CELIAC DISEASE). B. STOMACH, ANTRUM, BIOPSY: GASTRIC ANTRAL MUCOSA WITH FOCALLY ACTIVE MODERATE CHRONIC GASTRITIS AND REACTIVE GASTROPATHY. IMMUNOSTAIN FOR H. PYLORI IS POSITIVE FOR ORGANISMS (RARE ORGANISMS). Electronically Signed Cholo Hogue M.D. Gross Description A. Received in formalin labeled "duodenum" are 2 diallo, irregular portions of soft tissue averaging 0.3 cm in greatest dimension. The specimens are submitted in toto in one cassette. B. Received in formalin labeled "antrum" are 2 diallo, irregular portions of soft tissue averaging 0.3 cm in greatest dimension. The specimens are submitted in toto in one cassette. 01/06/2017
[2017-01-10 00:30] LABS: SERUM IRON 13 ug/dL (38-169); TOTAL IRON BINDING CAPACITY 555 ug/dL (250-450); UIBC 542 ug/dL (111-343)
[2017-01-11 00:06] LABS: Hgb A2 1.5 % (0.7-3.1)
== END 2017-01-09 12:30 | disposition home or self-care (01) | DRG 812 ==
LOC: FER 14:28 → FM/S 18:42
PROVIDERS: ADMIT Internal Medicine; ATTEND Nurse Practitioner Family
PROC: 30233N1 Transfusion of Nonautologous Red Blood Cells into Peripheral Vein, Percutaneous Approach (ICD-10-PCS; 2017-01-05)
PROC: 0DB98ZX Excision of Duodenum, Via Natural or Artificial Opening Endoscopic, Diagnostic (ICD-10-PCS; 2017-01-06)
PROC: 0DB68ZX Excision of Stomach, Via Natural or Artificial Opening Endoscopic, Diagnostic (ICD-10-PCS; 2017-01-06)
PROC: 0DJD8ZZ Inspection of Lower Intestinal Tract, Via Natural or Artificial Opening Endoscopic (ICD-10-PCS; principal; 2017-01-09 10:16)
DX: D50.9 Iron deficiency anemia, unspecified (principal); E78.5 Hyperlipidemia, unspecified; I10 Essential (primary) hypertension; D56.9 Thalassemia, unspecified; K25.9 Gastric ulcer, unspecified as acute or chronic, without hemorrhage or perforation; Z87.442 Personal history of urinary calculi
CPT/HCPCS: 36415; 36430; 71010-TC; 80048; 80053; 81003; 82272; 82550; 82728; 83021; 83540; 83550; 83690; 83735; 84484; 85025; 85027; 85044; 85660; 86850; 86900; 86901; 86922; 87086; 88305-TC; 93005; 99285-25; P9038; P9058

== ENCOUNTER 2018-10-02 17:55 | Emergency (ER) | payer OTHER, MEDICARE ==
[2018-10-02 18:26] VITALS: BP 152/85; PULSE 61; TEMP 98.5; BMI 32.8
--- NOTE | 2018-10-02 20:15 | PDOC ---
History of Present Illness - General History Source: Patient Exam Limitations: No Limitations - History of Present Illness Initial Comments: 10/02/18 20:59 The patient is a 73 year old male, with a significant past medical history of HTN and HLD, who presents to the emergency department with, a cyst to the left temporal scalp. As per patient, his sebaceous cyst has been present for multiple years and 3 days ago it began to itch prompting him to squeeze it. He endorses thin, blood tinged, foul smelling discharge from the wound. He denies any recent fevers, chills, headache or dizziness. He denies any recent nausea, vomit, diarrhea or constipation. He denies any recent chest pain or shortness of breath. He denies any recent dysuria, frequency, urgency or hematuria. Allergies: NKDA Past surgical history: None reported. Social History: Occasional alcohol usage. Nonsmoker. Denies recreational drug use. Primary Care Physician: Dr. Clinton <Amberly Dooley - Last Filed: 10/02/18 20:59> <Ashley Mercedes - Last Filed: 10/03/18 04:33> - General Chief Complaint: Abscess Boil Stated Complaint: SEBACIOUS CYST Time Seen by Provider: 10/02/18 18:18 Past History <Amberly Dooley - Last Filed: 10/02/18 20:59> - Past Medical History COPD: No Disorders: Yes (kidney stones) Hypercholesterolemia: Yes - Suicide/Smoking/Psychosocial Hx Smoking History: Never smoked Have you smoked in the past 12 months: No Hx Alcohol Use: Yes (OCCASIONAL) Drug/Substance Use Hx: No Substance Use Type: Alcohol <Ashley Mercedes - Last Filed: 10/03/18 04:33> - Past Medical History Allergies/Adverse Reactions: Allergies Allergy/AdvReac Type Severity Reaction Status Date / Time No Known Allergies Allergy Verified 10/02/18 18:20 Home Medications: Ambulatory Orders Lisinopril 5 mg PO DAILY 10/02/18 Review of Systems - Review of Systems Able to Perform ROS?: Yes Comments:: 10/02/18 21:00 CONSTITUTIONAL: Absent: fever, chills, diaphoresis, generalized weakness, malaise, loss of appetite HEENT: Present: Left temporal scalp sebaceous cyst. Absent: rhinorrhea, nasal congestion, throat pain, throat swelling, difficulty swallowing, mouth swelling, ear pain, eye pain, visual Changes CARDIOVASCULAR: Absent: chest pain, syncope, palpitations, irregular heart rate, lightheadedness , peripheral edema RESPIRATORY: Absent: cough, shortness of breath, dyspnea with exertion, orthopnea, wheezing, stridor, hemoptysis GASTROINTESTINAL: Absent: abdominal pain, abdominal distension, nausea, vomiting, diarrhea, constipation, melena, hematochezia GENITOURINARY: Absent: dysuria, frequency, urgency, hesitancy, hematuria, flank pain, genital pain MUSCULOSKELETAL: Absent: myalgia, arthralgia, joint swelling SKIN: Absent: rash, itching, pallor HEMATOLOGIC/IMMUNOLOGIC: Absent: easy bleeding, easy bruising, lymphadenopathy, frequent infections ENDOCRINE: Absent: unexplained weight gain, unexplained weight loss, heat intolerance, cold intolerance NEUROLOGIC: Absent: headache, focal weakness or paresthesias, dizziness, unsteady gait, seizure, mental status changes, bladder or bowel incontinence PSYCHIATRIC: Absent: anxiety, depression, suicidal or homicidal ideation, hallucinations. All Other Systems: Reviewed and Negative <Amberly Dooley - Last Filed: 10/02/18 20:59> *Physical Exam - Vital Signs Last Vital Signs Temp Pulse Resp BP Pulse Ox 98.5 F 61 16 152/85 98 10/02/18 18:04 10/02/18 18:04 10/02/18 18:04 10/02/18 18:04 10/02/18 18:04 - Physical Exam Comments: 10/02/18 21:00 GENERAL: The patient is awake, alert, and fully oriented, in no acute distress. +HEAD: 1cm in diameter, moderate fluctuance, erythematous nodule to the left temporal scalp with minimal tenderness. No purulence discharge. EYES: Pupils equal, round and reactive to light, extraocular movements intact, sclera anicteric, conjunctiva clear. EXTREMITIES: Normal range of motion, no edema. NEUROLOGICAL: Normal speech, normal gait. PSYCH: Normal mood, normal affect. SKIN: Warm, Dry, normal turgor, no rashes or lesions noted. <Amberly Dooley - Last Filed: 10/02/18 20:59> - Vital Signs Last Vital Signs Temp Pulse Resp BP Pulse Ox 98.5 F 61 16 152/85 98 10/02/18 18:04 10/02/18 18:04 10/02/18 18:04 10/02/18 18:04 10/02/18 18:04 <Ashley Mercedes - Last Filed: 10/03/18 04:33> Moderate Sedation - Procedure Monitoring Vital Signs: Procedure Monitoring Vital Signs Temperature 98.5 F 10/02/18 18:04 Pulse Rate 61 10/02/18 18:04 Respiratory Rate 16 10/02/18 18:04 Blood Pressure 152/85 10/02/18 18:04 O2 Sat by Pulse Oximetry (%) 98 10/02/18 18:04 <Amberly Dooley - Last Filed: 10/02/18 20:59> - Procedure Monitoring Vital Signs: Procedure Monitoring Vital Signs Temperature 98.5 F 10/02/18 18:04 Pulse Rate 61 10/02/18 18:04 Respiratory Rate 16 10/02/18 18:04 Blood Pressure 152/85 10/02/18 18:04 O2 Sat by Pulse Oximetry (%) 98 10/02/18 18:04 <Ashley Mercedes - Last Filed: 10/03/18 04:33> Procedures - Incision and Drainage I&D Site: Left: Other (scalp) Betadine cleansed: No (chlorhexidene /ethanol) Anesthesia: 1% Lidocaine Volume(ml): 1 Blade Size: 11 Attempts: 1 Iodinated Packin/4 in Complications: none Dressing: No Progress: Area cleansed with Hibiclens/ethanol solution. 1 mL of 1% lidocaine infiltrated for local anesthesia. 1 cm incision made with #11 blade. Moderate amount of purulent material discharged and sent for culture and sensitivity. Wound irrigated with 40 mL of normal saline followed by packing with quarter inch iodinated packing material. Patient tolerated procedure well <Ashley Mercedes - Last Filed: 10/03/18 04:33> Progress Note - Progress Note Progress Note: Documentation has been prepared under my direction and personally reviewed by me in its entirety. I attest that this documented accurately reflects all work, treatment, procedures and medical decision making performed by me. <Ashley Mercedes - Last Filed: 10/03/18 04:33> Medical Decision Making - Medical Decision Making As noted above, 73-year-old man presents with moderately inflamed sebaceous cyst. Because of the small area of fluctuance in the center of the nodule, incision and drainage was performed as noted above. Since there was not a marked amount of inflammation/erythema surrounding the abscess, no antibiotics were administered. Patient will remove the packing in 48 hours and apply bacitracin ointment daily. Patient will follow-up with Dr. Clinton during his scheduled follow-up in 10 days. He has any problems prior to this, he will return to the emergency room <Ashley Mercedes - Last Filed: 10/03/18 04:33> *DC/Admit/Observation/Transfer - Attestations Scribe Attestion: 10/02/18 21:00 Documentation prepared by Amberly Dooley, acting as hospital medical biller for Ashley Mercedes MD. <Amberly Dooley - Last Filed: 10/02/18 20:59> <Ashley Mercedes - Last Filed: 10/03/18 04:33> Diagnosis at time of Disposition: Infected sebaceous cyst - Discharge Dispostion Disposition: HOME Condition at time of disposition: Stable - Referrals Referrals: Brain Clinton MD [Primary Care Provider] - - Patient Instructions Printed Discharge Instructions: DI for Incision and Drainage of a Skin Abscess Additional Instructions: keep head elevated tonight Keep area of wound as dry as possible for the next 24 hours Remove packing on morning, October 04 After packing is out, apply Bacitracin ointment daily Return or see Dr. Clinton if area becomes red/swollen/painful or you have recurrent drainage Follow-up with Dr. Clinton on October 20 as scheduled - Post Discharge Activity
== END 2018-10-02 21:02 | disposition home or self-care (01) ==
LOC: FER 17:55
PROC: 0H90XZZ Drainage of Scalp Skin, External Approach (ICD-10-PCS; principal; 2018-10-02)
DX: L02.811 Cutaneous abscess of head [any part, except face] (principal); I10 Essential (primary) hypertension; E78.5 Hyperlipidemia, unspecified
CPT/HCPCS: 10060; 87070; 87077; 87205; 99281-25

== ENCOUNTER 2022-02-02 16:45 | Emergency (ER) | payer OTHER ==
[2022-02-02] MEDS ORDERED: ACETAMINOPHEN 500 MG TABLET (FP) PO ONE (16:51)
[2022-02-02] MEDS ORDERED: METHOCARBAMOL 500 MG TABLET PO ONE (16:51)
[2022-02-02] MEDS ORDERED: LIDOCAINE 5% TOPICAL PATCH TP ONE (16:51)
[2022-02-02] MEDS ORDERED: LIDOCAINE 5% TOPICAL PATCH ONE (16:58)
[2022-02-02] MEDS ORDERED: ACETAMINOPHEN 500 MG TABLET (FP) ONE (16:58)
[2022-02-02] MEDS ORDERED: METHOCARBAMOL 500 MG TABLET ONE (16:58)
[2022-02-02 17:00] VITALS: BP 173/95; PULSE 72; TEMP 98.8; BMI 32.1
[2022-02-02] MEDS ORDERED: LIDOCAINE PATCH REMOVAL MC SCH (22:00)
== END 2022-02-02 18:31 | disposition home or self-care (01) ==
LOC: FER 16:45
DX: M25.551 Pain in right hip (principal)
CPT/HCPCS: 73502-TC-RT-FY; 99283-25